=== PATIENT | male | born 1995 | race African-American/Black ===

== ENCOUNTER 2020-12-20 22:22 | Emergency (ER) | payer OTHER ==
[~2020-12-20] VITALS: Ht 175.3 cm; Wt 81.7 kg
[2020-12-20 22:43] VITALS: BP 141/89
[2020-12-20] MEDS ORDERED: MOBIC7.5 MG PO (22:59)
[2020-12-20] MEDS ORDERED: ZANAFLEX4 MG PO (22:59)
== END 2020-12-20 23:05 | disposition home or self-care (01) ==
LOC: ER 22:22
DX: M54.50 Low back pain, unspecified (principal); F12.90 Cannabis use, unspecified, uncomplicated